=== PATIENT | female | born 1945 | race Caucasian/White ===

== ENCOUNTER → 2016-11-12 | Outpatient (CLI) | payer BC, MEDICARE | LOC: US 08:36 | DX: R94.5 Abnormal results of liver function studies (principal); R16.0 Hepatomegaly, not elsewhere classified | CPT/HCPCS: 76700 ==

== ENCOUNTER → 2020-09-14 | Outpatient (CLI) | payer OTHER ==
[~2020-09-14] MED LIST: NORCO 5-325 TA1 EACH PO
== END ==
LOC: US 09-01 09:30 → KOH-I 09-07 08:30
DX: K75.81 Nonalcoholic steatohepatitis (NASH) (principal)
CPT/HCPCS: 76700

== ENCOUNTER → 2021-09-28 | Outpatient (CLI) | payer OTHER ==
[~2021-09-28] MED LIST changes: +AMITRIPTYLINE H25 MG PO; +DICLOFENAC; +DICYCLOMINE HCL10 MG PO; +ECOTRIN81 MG PO; +LEVOCETIRIZINE D5 MG PO; +LEVOTHYROXINE150 MC1 PO; +LISINOPRIL20 MG PO; +MIRALAX17 GM PO; +MYRBETRIQ50 MG PO; +VAZALORE81 MG PO; +ZYRTEC10 M3 PO
[2021-09-28 10:54] LABS: BUN/CREATININE RATIO 16 (0-10)
== END ==
LOC: OPSV2 08:54
PROVIDERS: Anesthesiology
DX: Z01.818 Encounter for other preprocedural examination (principal); M85.642 Other cyst of bone, left hand
CPT/HCPCS: 36415; 80048; 93005

== ENCOUNTER → 2021-10-11 | Day surgery (SDC) | payer OTHER ==
[~2021-10-11] VITALS: Ht 175.3 cm; Wt 78.9 kg
[~2021-10-11] MED LIST changes: -DICLOFENAC; +DICLOFENAC TOP; +HYDROCODON-ACE1 EAC4 PO
== END | disposition home or self-care (01) ==
LOC: OR 06:10
DX: M71.342 Other bursal cyst, left hand (principal); I10 Essential (primary) hypertension; E03.9 Hypothyroidism, unspecified; G62.9 Polyneuropathy, unspecified; C43.9 Malignant melanoma of skin, unspecified; Z79.82 Long term (current) use of aspirin; Z20.822 Contact with and (suspected) exposure to COVID-19
CPT/HCPCS: J0690; J1100; J2001; J2250; J2405; J2704; J3010; J7030; J7120